=== PATIENT | female | born 1990 | race Caucasian/White ===

== ENCOUNTER 2018-06-20 13:30 | Inpatient (IN) | payer OTHER ==
[~2018-06-20] VITALS: Ht 160 cm; Wt 0.2 kg
[2018-06-20] MEDS ORDERED: EXPECTA PRENAT1 EACH (15:11)
[2018-06-20] MEDS ORDERED: IRON 100 PLUS1 EACH (15:12)
[2018-06-20 16:09] LABS: BASOPHILS ABSOLUTE AUTO 0.04 K/mm3 (0.00-0.23); BASOPHILS PERCENT AUTO 0 % (0-2); EOSINOPHILS ABSOLUTE AUTO 0.21 K/mm3 (0.00-0.68); EOSINOPHILS PERCENT AUTO 2 % (0-6); Hematocrit 38.4 % (33.0-51.0); Hemoglobin 12.5 g/dL (11.5-16.0); IMMATURE GRAN ABSOLUTE AUTO 0.06 K/mm3 (0.00-0.10); IMMATURE GRAN PERCENT AUTO 1 % (0-1); LYMPHOCYTES ABSOLUTE AUTO 1.92 K/mm3 (0.84-5.20); LYMPHOCYTES PERCENT AUTO 17 % (21-46); MONOCYTES ABSOLUTE AUTO 1.04 K/mm3 (0.16-1.47); MONOCYTES PERCENT AUTO 9 % (4-13); Mean Corpuscular HGB Conc 32.6 g/dL (31.5-36.5); Mean Corpuscular Volume 89 fL (80-100); Mean Platelet Volume 11.1 fL (9.1-12.4); NEUTROPHILS ABSOLUTE AUTO 7.74 K/mm3 (1.96-9.15); NEUTROPHILS PERCENT AUTO 70 % (41-73); Platelet Count 269 K/mm3 (150-400); RDW Coefficient Variation 14.2 % (11.7-14.2); RDW Standard Deviation 45.9 fL (35.1-46.3); Red Blood Cell Count 4.31 M/mm3 (3.80-5.20); White Blood Cell Count 11.01 K/mm3 (4.00-11.30)
--- NOTE | 2018-06-21 07:39 | NUR ---
ASSUMED CARE PT STATES SHE SHOWERED THIS MORNING TOLERATED WELL, AMBULATED WITH NO ASSISTANCE, CALL LIGHT WITHIN REACH WILL CALL FOR ASSISTANCE IF NEEDED FAMILY IN ROOM
--- NOTE | 2018-06-21 08:49 | NUR ---
DR ANDERS AT BEDSIDE DISCUSSING PLAN OF CARE WITH NB, WILL BEGIN PUMPING AFTER PT DONE WITH BREAKFAST.
[2018-06-21 12:48] LABS: Hematocrit 35.6 % (33.0-51.0); Hemoglobin 11.3 g/dL (11.5-16.0); Mean Corpuscular HGB 28.8 pg (26.0-34.0); Mean Corpuscular HGB Conc 31.7 g/dL (31.5-36.5); Mean Corpuscular Volume 91 fL (80-100); Mean Platelet Volume 10.4 fL (9.1-12.4); Platelet Count 226 K/mm3 (150-400); RDW Coefficient Variation 14.1 % (11.7-14.2); RDW Standard Deviation 46.5 fL (35.1-46.3); Red Blood Cell Count 3.93 M/mm3 (3.80-5.20); White Blood Cell Count 15.83 K/mm3 (4.00-11.30)
--- NOTE | 2018-06-21 13:25 | NUR ---
down to nsy to visit nb
--- NOTE | 2018-06-21 13:39 | NUR ---
CONSULT. BABY IS IN SCN AND MOM IS PUMPING AND TAKING MILK TO NSY. BABY CONTINUES NPO AND ON O2 AND IVF. MOM IS CURRENTLY PUMPING 1 BREAST AT A TIME, ABOUT Q3 HOURS FOR 15 MINUTES. MINIMAL PRODUCTION TODAY. RECORDING SHEET GIVEN. INSTRUCT TO TRY PUMPING BOTH BREASTS AT THE SAME TIME, Q2 HOURS DAY, Q3-4 HOURS AT NIGHT, FOR 15-20 MINUTES TO STIMULATE PRODUCTION OF MILK. SHE IS EXPERIENCED, PRODUCED HEAVILY WITH FIRST CHILD. INSTRUCT IN CHANGES TO EXPECT DURING THE FIRST WEEK WITH FEEDINGS AND WITH BABY AND REFERRED TO BF BROCHURE FOR PHOTOS AND INFORMATION. DENIES FURTHER QUESTIONS. BOTH PARENTS LOVING TOWARD BABY.
--- NOTE | 2018-06-21 16:06 | NUR ---
PT REMAINS SLEEPING, LEFT UNDISTURBED AT THIS TIME
--- NOTE | 2018-06-21 16:44 | NUR ---
REPT TO Markel MELENDEZ RN
--- NOTE | 2018-06-22 06:47 | NUR ---
DISCHARGED FROM NURSERY AT 0645, 30 MINUTES AFTER A FINGER FEED. SATS 97%, NO RETRACTIONS, COLOR PINK, VITALS WNL. PENNYRN
--- NOTE | 2018-06-22 15:00 | NUR ---
FOLLOW UP. BABY IS NOW ROOMING IN WITH MOM. SHE IS STILL PUMPING SOME, MILK NOT IN YET. INSTRUCT TO CONTINUE PUMPING AT LEAST 4-6X/DAY TO HELP BRING MILK IN BETTER HIS SUCK IS STILL NOT THE STRONGEST. SHE HANDLES HIM WELL AND CAN HIM HIM LATCHED. INSTRUCT/DEMO WIDENING HIS LATCH FURTHER. HAS BEEN BOTTLE OR SYRING FEEDING EBM. INSTRUCT/DEMO HOW TO USE FEEDING TUBE AND SYRINGE OF EBM AND FINGER FEEDING SO THAT SUCK CAN ALSO BE EVALUATED. BOTH PARENTS ATTENTIVE TO INSTRUCTS. DENY QUESTIONS.
--- NOTE | 2018-06-22 21:44 | NUR ---
PATIENT STATES TOPS OF FEET FEEL NUMB.
--- NOTE | 2018-06-23 11:18 | NUR ---
discharge pt discharge in stable condition. dicharge instructions given reverbalized understanding, denies any further questions at this time. bands matched and hugs removed
== END 2018-06-23 11:03 | disposition home or self-care (01) | DRG 807 ==
LOC: OBS 13:30 → BC 13:36 → OBS 15:01 → BC 15:10
PROVIDERS: ADMIT Advanced Practice Midwife
PROC: 10E0XZZ Delivery of Products of Conception, External Approach (ICD-10-PCS; principal; 2018-06-21)
PROC: 0KQM0ZZ Repair Perineum Muscle, Open Approach (ICD-10-PCS; 2018-06-21)
PROC: 3E0R3BZ Introduction of Anesthetic Agent into Spinal Canal, Percutaneous Approach (ICD-10-PCS; 2018-06-21)
DX: O99.344 Other mental disorders complicating childbirth (principal); Z37.0 Single live birth; F32.9 Major depressive disorder, single episode, unspecified; F41.9 Anxiety disorder, unspecified; Z3A.38 38 weeks gestation of pregnancy; O76 Abnormality in fetal heart rate and rhythm complicating labor and delivery; O69.1XX0 Labor and delivery complicated by cord around neck, with compression, not applicable or unspecified; O70.1 Second degree perineal laceration during delivery; O99.334 Smoking (tobacco) complicating childbirth; F17.210 Nicotine dependence, cigarettes, uncomplicated; Z88.2 Allergy status to sulfonamides
CPT/HCPCS: 36415; 51702; 59025; 85025; 85027; 86900; 86901; 87210; J1885; J2210; J2405; J2590; J3010; J7120

== ENCOUNTER → 2019-06-13 | Outpatient (CLI) | payer OTHER ==
[~2019-06-13] MED LIST: EXPECTA PRENAT1 EACH; IRON 100 PLUS1 EACH
== END | disposition home or self-care (01) ==
LOC: LAB UCHC 16:50 → LAB SHORT 16:50
DX: N39.0 Urinary tract infection, site not specified (principal)
CPT/HCPCS: 87077; 87086; 87186